=== PATIENT | male | born 2000 | race Caucasian/White ===

== ENCOUNTER 2022-04-24 02:49 | Emergency (ER) | payer OTHER ==
[~2022-04-24] VITALS: Ht 175.3 cm; Wt 63.5 kg
[2022-04-24 03:00] VITALS: BP_SYST 107
--- NOTE | 2022-04-24 03:00 | NUR ---
Patient triaged and placed in waiting room. VSS and patient appears in no acute distress at this time. Awaiting available bed, and MD notified of need for MSE.
--- NOTE | 2022-04-24 03:22 | NUR ---
ER examining patient in the triage room.
[2022-04-24] MEDS ORDERED: DIPHTH,PERTUSS(ACELL),TET VAC 0.5 ML VIAL (Tdap) I.M. ONE (03:30)
--- NOTE | 2022-04-24 03:40 | NUR ---
Patient has a 2cm laceration to left midle finger. Dr. Zamora applied sutures using sterile technique. Edges well approximated. Site cleansed with NS and iodine. Dressing of 4x4 gauze applied to site. No bleeding noted. Pt tolerated well.
[2022-04-24] MEDS ORDERED: IBUP-2018 PO (03:45)
--- NOTE | 2022-04-24 03:57 | NUR ---
Patient given written and verbal discharge instructions and verbalizes understanding. ER MD discussed with patient the results and treatment provided. Patient in stable condition. ID arm band removed. Rx of Ibuprofen given. Patient educated on pain management and to follow up with PMD. Pain Scale 0/10. Opportunity for questions provided and answered. Medication side effect fact sheet provided.
[2022-04-24 03:59] VITALS: BP_SYST 105
== END 2022-04-24 04:00 | disposition home or self-care (01) ==
LOC: SED 02:49
DX: S61.213A Laceration without foreign body of left middle finger without damage to nail, initial encounter (principal); Z79.899 Other long term (current) drug therapy; W27.4XXA Contact with kitchen utensil, initial encounter; Y93.G2 Activity, grilling and smoking food; Y92.89 Other specified places as the place of occurrence of the external cause; Y99.8 Other external cause status
CPT/HCPCS: 90715; 99283